=== PATIENT | female | born 1965 | race Caucasian/White ===

== ENCOUNTER → 2017-04-17 | Outpatient (CLI) | payer OTHER ==
[~2017-04-17] MED LIST: HYDCHL12.5 PO; LEVSOD100 PO; NAPR500 PO; OXYACE5T PO; TAMS.4ER PO
== END | disposition home or self-care (01) ==
LOC: LAB 12:15
DX: J15.9 Unspecified bacterial pneumonia (principal)
CPT/HCPCS: 87070; 87205